=== PATIENT | male | born 1945 | race Caucasian/White ===

== ENCOUNTER 2016-09-03 13:56 | Outpatient (CLI) | payer MEDICARE, OTHER | END 2016-09-03 23:59 | disposition critical access hospital (66) | DX: R40.20 Unspecified coma (principal) | CPT/HCPCS: A0425; A0427 ==

== ENCOUNTER 2016-09-03 14:01 | Inpatient (IN) | payer MEDICARE, OTHER ==
[2016-09-03] MEDS ORDERED: MORPHINE 2 MG/ML SYRINGE IVP PRN (16:19)
[2016-09-03] MEDS ORDERED: SODIUM CHLORIDE FLUSH 0.9% 10 ML SYRINGE IVP PRN (16:19)
[2016-09-03] MEDS ORDERED: ONDANSETRON 4 MG/2 ML VIAL IVP PRN (16:19)
[2016-09-03] MEDS ORDERED: PROCHLORPERAZINE 10 MG/2 ML VIAL IVP PRN (16:19)
[2016-09-03] MEDS: SODIUM CHLORIDE 0.9% 1,000 ML IV SCH (18:43)
[2016-09-03] MEDS: SODIUM CHLORIDE FLUSH 0.9% 10 ML SYRINGE IVP SCH (18:43)
[2016-09-03] MEDS ORDERED: LACTULOSE 10 GM /15 ML UDC PR SCH (21:00)
[2016-09-03] MEDS ORDERED: LACTULOSE 10 GM /15 ML UDC PO SCH (21:00)
[2016-09-03] MEDS: LACTULOSE 10 GM/15 ML BOTTLE PR SCH (22:01)
[2016-09-03] MEDS: HEPARIN 5,000 UNIT/ML VIAL SUBQ SCH (22:02)
[2016-09-04] MEDS: SODIUM CHLORIDE 0.9% 1,000 ML IV SCH ×2 (04:36→16:28)
[2016-09-04] MEDS: SODIUM CHLORIDE FLUSH 0.9% 10 ML SYRINGE IVP SCH ×3 (06:40→22:19)
[2016-09-04] MEDS: HEPARIN 5,000 UNIT/ML VIAL SUBQ SCH ×2 (09:04→23:23)
[2016-09-04] MEDS: LACTULOSE 10 GM/15 ML BOTTLE PR SCH ×4 (09:09→21:15)
[2016-09-04] MEDS: POLYETHYLENE GLYCOL 3350 17 GM PACKET PO SCH (09:10)
[2016-09-04] MEDS ORDERED: GADOBUTROL 7.5 MMOL/7.5 ML VIAL IVP ONE (15:01)
[2016-09-05] MEDS: SODIUM CHLORIDE 0.9% 1,000 ML IV SCH ×2 (01:49)
[2016-09-05] MEDS: SODIUM CHLORIDE FLUSH 0.9% 10 ML SYRINGE IVP SCH (07:25)
[2016-09-05] MEDS: LACTULOSE 10 GM/15 ML BOTTLE PR SCH (10:37)
[2016-09-05] MEDS: POLYETHYLENE GLYCOL 3350 17 GM PACKET PO SCH (10:37)
== END 2016-09-05 13:04 | disposition home or self-care (01) | DRG 442 ==
DX: K72.91 Hepatic failure, unspecified with coma (principal); D61.818 Other pancytopenia; E78.5 Hyperlipidemia, unspecified; K21.9 Gastro-esophageal reflux disease without esophagitis; K76.0 Fatty (change of) liver, not elsewhere classified; I25.10 Atherosclerotic heart disease of native coronary artery without angina pectoris; F32.9 Major depressive disorder, single episode, unspecified; I25.2 Old myocardial infarction; Z87.01 Personal history of pneumonia (recurrent); Z87.442 Personal history of urinary calculi; Z95.5 Presence of coronary angioplasty implant and graft; Z87.891 Personal history of nicotine dependence; Z79.82 Long term (current) use of aspirin; Z92.21 Personal history of antineoplastic chemotherapy; Z86.711 Personal history of pulmonary embolism; Z91.81 History of falling; Z92.3 Personal history of irradiation; Z85.07 Personal history of malignant neoplasm of pancreas

== ENCOUNTER 2016-09-09 10:00 | Outpatient (CLI) | payer MEDICARE, OTHER | END 2016-09-09 10:01 | disposition home or self-care (01) | DX: R31.9 Hematuria, unspecified (principal) ==

== ENCOUNTER 2016-09-23 10:09 | Outpatient (CLI) | payer MEDICARE, OTHER | END 2016-09-23 10:10 | disposition home or self-care (01) | DX: C25.9 Malignant neoplasm of pancreas, unspecified (principal); K72.90 Hepatic failure, unspecified without coma ==

== ENCOUNTER 2016-09-25 10:36 | Outpatient (CLI) | payer MEDICARE, OTHER | END 2016-09-25 10:37 | disposition home or self-care (01) | DX: Z51.5 Encounter for palliative care (principal); R63.0 Anorexia; R10.9 Unspecified abdominal pain; R11.0 Nausea; K72.90 Hepatic failure, unspecified without coma; C25.9 Malignant neoplasm of pancreas, unspecified; Z79.899 Other long term (current) drug therapy; D61.818 Other pancytopenia; N20.0 Calculus of kidney; K76.89 Other specified diseases of liver; F41.9 Anxiety disorder, unspecified; I25.10 Atherosclerotic heart disease of native coronary artery without angina pectoris; I25.2 Old myocardial infarction; I26.99 Other pulmonary embolism without acute cor pulmonale; E78.5 Hyperlipidemia, unspecified; K21.9 Gastro-esophageal reflux disease without esophagitis; F32.9 Major depressive disorder, single episode, unspecified; Z66 Do not resuscitate; R06.02 Shortness of breath; R63.4 Abnormal weight loss ==

== ENCOUNTER 2016-10-01 15:30 | Outpatient (CLI) | payer MEDICARE, OTHER ==
--- NOTE | 2016-10-02 06:29 | CONSULTATION NOTE ---
DATE OF CONSULTATION: 10/01/2016 00:00:00 REQUESTING PROVIDER: Margarito Freeman MD. TIME OF VISIT: 15:30 to 16:30. TOPIC: Followup palliative care consultation. Thank you, Dr. Freeman, for asking the palliative care consult service to be involved in the care of you r patient and providing support for transitions of care. The patient is seen in his home setting secondary to a considerable and taxing effort for him to leav e the home with his decline. BRIEF HISTORY OF PRESENT ILLNESS: This is a ayesha 71-year-old gentleman diagnosed with pancreatic ca ncer in June 2015, has received chemotherapy, Whipple, chemoradiation and gemcitabine and origina lly seen at [facility], but has been seeing Dr. Fischer since 04/2016. He has pr esented over the last couple months with increased weight loss, poor appetite, early satiety, was hos pitalized for hepatic encephalopathy two weeks ago as well as hematuria. He did meet with the oncolog ist yesterday who had shared with him there really were no other treatment options given the recurren ce of his disease and given his fraility and fragile status. We had agreed to meet today to followup one more time as far as processing and counseling, the transition to hospice. This has felt very sudd en to both of them and felt like they needed another session to just clarify goals and prepare francesco aguirre for his imminent demise. In the context of this I did call the home this morning and the patient had had some increased confus ion, had not been eating or drinking since about noon yesterday and did appear to be encephalotic aga in. Navid was really struggling with weighing benefits and burdens of bringing him back in to the ED. He had a really good weekend talking to lots of his friends, making plans with family and getting th ings lined up and she believes he had originally expected that he had several months, though she had understood from Dr. Freeman just a couple weeks. We did review at length the pros and cons, pros definit julio césar as far as going back because they have made some arrangements, were hoping for family reunion any mcle[place], cons that we would be right back here and it may not work and he had been pretty clear that he wanted to be comfortable and to have a at home. In our conversations I did encourage her to fol jose with her primary care doctor, Dr. Freeman, who knows them both very well and seek his assistant counsel, but certainly I would support either decision and we agreed if they did not go to the ED we would keep h er appointment and make it a home visit this afternoon. As far as the patient being able to participa te in the decision, he did not want to take the lactulose medication, he did not want to go into the ED, but it is unclear if he understood the implications of this. She did have 2 friends show up, Darryl schafer and Anant, who were quite supportive of her decision that she came to with Dr. Freeman's assistance a bout just keeping him at home and keeping him comfortable. Unfortunately, he had been incontinent of stool. He was slightly restless, was not cooperative with her, but did cooperate with myself. His fri end cleaned him up for the incontinence of stool, and I am coming in at the end of all this. The magda ent is sitting in his Depends on the couch. He reports he is uncomfortable, though he is unable to te ll me where. He does not appear in acute distress, he just appears mildly confused. He is very pleasa nt. He did agree to cooperate with me. I do take him back to the bedroom, got him in some Depends and settled him in. In looking at the restlessness and getting a plan for 24 hours, I did crush some Ati van and he did agree to take it for me and swallowed without difficulty. She reports he had gotten on e dose of lactulose this morning, has refused to eat or drink and does appear more weak and shaky, an d recognizes his , but otherwise is not making much sense. She reports he did have in his stool s ome gelatinous Burgundy stool, so I suspect he also is having a GI bleed. CODE STATUS: THE PATIENT DOES HAVE A POLST FORM COMPLETED, A DO NOT ATTEMPT RESUSCITATION, ALLOW NATU RAL , COMFORT MEASURES ONLY, WELL DETERMINE USE OR LIMITATION OF ANTIBIOTICS IF INFECTION OCCURS COMFORT THE GOAL AND NO MEDICALLY ASSISTED NUTRITION. BRIEF SOCIAL HISTORY: He is to his ayesha Navid Blount. They met late in life and been ma rried not quite 20 years. They did retire and moved to the [place]. They have their good friends, Darryl schafer and Anant, who are planning to stay. He has always had a really good sense of humor, has continued to joke almost up to the last moment here, a very kind and gentle man. Navid is appropriately quite tearful and grieving. She recently has converted to [employer] and has had her own journey with breast cancer, too. They do have of course financial stressors. Navid does have a sister in [place] and some neighbors who have been providing support as well. They also have a new puppy who is being take n care of by their neighbors currently. PERFORMANCE STATUS: The patient is at this point unable to attend to his own ADLs. He is able to ambu late down the hagen. He has only had some sips of fluid. He is somewhat confused. I would put him on a palliative care performance status at 30%. REVIEW OF SYSTEMS: This is addressed mostly above. He is quite thin, has had significant amount of we ight loss. He has his glasses on. His has noted some changes in breathing patterns, but no distr ess. GENITOURINARY: He has had intermittent blood in his urine. SKIN: Has not had pruritus or jaundice. NEUROLOGIC: He had been really struggling with his memory with increased confusion in the last 48 abril rs accumulating into today with being less cooperative and seems to have lost decision making capacit y. PHYSICAL EXAMINATION: GENERAL: He is quite pale. He does not appear in any pain or distress. His color is somewhat sallow, eyes anicteric. His O2 saturations are 96%. Temperature 95.4. ENT: Mucous membranes are dry. NECK: Trachea midline. RESPIRATORY: Currently his breath sounds are clear. CARDIOVASCULAR: His blood pressure is 116/64, pulse 96. ABDOMEN: Flat today. He did have some bulging earlier, a right inguinal hernia noted, easily reduced. PALLIATIVE CARE DISCUSSION: Who is present, we had walked to the patient back in the bedroom. I am me eting with Navid, their friends Jarad and Anant who are going to stay for support. We did reviewed h er decision making process and her struggles through the day, still of course is wondering, but recog nizing particularly I reinforced that he has had burgandy stools, this is most likely not a irreversi ble process including the hepatic encephalopathy at this point. We had gotten him quite comfortable a wi hospice is set up to come in the morning. I did discuss the signs and symptoms, what to expect, ho w this might go, and just acknowledged just how quick the decline has come. Navid has not had any exp erience with or dying or hospice, so did spend some time counseling regarding current situation , trying to normalize to process, how things might go, what to do at time of if he dies before hospice. IMPRESSION: This is a 71-year-old gentleman with recurrent pancreatic cancer now with most likely rec urrent hepatic encephalopathy and GI bleeding. He is currently with just some mild restlessness and a gitation. RECOMMENDATIONS/COUNSELING DONE: 1. Hepatic encephalopathy. I did go ahead and give him lorazepam 0.5 mg. It took about an hour, but carlos luis did settle down and is sleeping quietly. The plan will be to go ahead and medicate him every 4-6 ho urs. Wrote a script for Haldol if he does have increased agitation beyond this. 2. Pancreatic cancer advanced stage. The patient does appear to be transitioning. We did discuss it c ould be hours to days and being prepared for the longer haul, did make contact with Hospice. They wer e able to send a hospital bed and commode for tonight, the nurse will meet them at 9 o'clock in the a m. I did give them the 24-hour number as well as report to the nurse on-call. Did discuss with Navid that she does not need to call 911. They had not made plans, yet he had made some calls, but she was unable to get that information from him. Given the concerns about finances, I did talk to the m about [facility] as they do cremation and do contract with a local home. They were g sumit to explore this. Otherwise, I gave them the 2 that were not connected as she remembered that the y said it was on [facility] and was not connected to "the other 2" which would have been Debra Henao under [facility]. I did go ahead and order comfort medications as far as some morphine and Duvall ldol. She does have lorazepam in the home and prepared some lorazepam syringes to help through the ght. 3. Grief and loss. Just normalize her current feelings in the transition time here. I did provide Whe n Is Near and [facility], particularly around the last chapter about ambreen roblero go, reassured her as far as having a plan, what to expect, and looking forward I will alert hospice as far as possible bereavement risk, this has been a fairly traumatic change and difficult decision for Navid. She does feel supported though by Dr. Freeman and the palliative care team knowing that [facility] will provide that support as well. TIME SPENT: 60 minutes with greater than 50% of this done in counseling and coordination of care with the hospice team, preparing a care plan for the next 24 hours, obtaining comfort medications and equ ipment and anticipatory guidance. JOB #: [id number] EXT JOB #:[id number]
== END 2016-10-01 15:31 | disposition home or self-care (01) ==
LOC: PC 15:30
PROVIDERS: ATTEND Nurse Practitioner Adult Health
DX: Z51.5 Encounter for palliative care (principal); K72.90 Hepatic failure, unspecified without coma; C25.9 Malignant neoplasm of pancreas, unspecified; R63.4 Abnormal weight loss; R68.81 Early satiety; R31.9 Hematuria, unspecified; R41.0 Disorientation, unspecified; Z66 Do not resuscitate; K92.2 Gastrointestinal hemorrhage, unspecified
CPT/HCPCS: 99350